=== PATIENT | female | born 1945 | race Caucasian/White ===

== ENCOUNTER 2021-09-27 06:21 | Day surgery (SDC) | payer MEDICARE, SELFPAY ==
[2021-09-20 15:51] VITALS: BMI 35.6
--- NOTE | 2021-09-26 13:37 | P.CONAN_ITS ---
Documented by User: Pippa Milligan NP 09/26/21 13:38 HPI - Anesthesia Eval Consult details Narrative: 76yo F for Upper Endoscopy with Balloon Dilitation and Colonoscopy [facility] Past Medical History Medical History Arthritis Edema of both lower extremities Hiatal hernia History of diverticulosis History of high cholesterol Internal hemorrhoids Surgical History Surgical History History of esophagogastroduodenoscopy (EGD) History of medial meniscus repair of left knee Hx of colonoscopy Hx of tubal ligation Hx of varicose vein ligation Social History Social History Are you a primary critical care nurse specialist to a significant other at home: No Do you presently have visiting nurse or other home services: No Patient Tobacco Use Status: Former Tobacco user Quit Date: 1999 Tobacco use type: Cigarette Use of substances other than those prescribed or required for medical reasons: No Are you DNR?: No Advance Directives: No Advance Directives Information Provided: Yes Meds Allergies Allergy/AdvReac Type Severity Reaction Status Date / Time No Known Allergies Allergy Verified 09/20/21 15:50 Home Medications Medication Instructions Recorded Confirmed Last Taken Type Calcium + Vitamin D 09/20/21 Unknown History aspirin 81 mg tablet,delayed 81 mg PO DAILY 09/20/21 09/27/21 09/20/21 History release furosemide 20 mg tablet 20 mg PO DAILY 09/20/21 09/20/21 Unknown History multivitamin tab 09/20/21 Unknown History omega-3 fatty acids PO 09/20/21 09/20/21 Unknown History rosuvastatin 40 mg tablet 40 mg PO DAILY 09/20/21 09/20/21 Unknown History Exam Exam Date and Time: September 26, 2021 1337 Height,Weight and Vital Signs: Height 5 ft 4 in Weight 94.347 kg Assessment and Plan Assessment Anesthesia Assessment: Chart Reviewed Documented by User: Edgar Morrow 09/27/21 09:42 [facility] Past Medical History Medical History Arthritis Edema of both lower extremities Hiatal hernia History of diverticulosis History of high cholesterol Internal hemorrhoids Functional capacity: wheelchair bound Family History Family history of problems with anesthesia: No Surgical History Surgical History History of esophagogastroduodenoscopy (EGD) History of medial meniscus repair of left knee Hx of colonoscopy Hx of tubal ligation Hx of varicose vein ligation History of Problems with Anesthesia: No Social History Social History Are you a primary critical care nurse specialist to a significant other at home: No Do you presently have visiting nurse or other home services: No Patient Tobacco Use Status: Former Tobacco user Quit Date: 1999 Tobacco use type: Cigarette Use of substances other than those prescribed or required for medical reasons: No Are you DNR?: No Advance Directives: No Advance Directives Information Provided: Yes Meds Allergies Allergy/AdvReac Type Severity Reaction Status Date / Time No Known Allergies Allergy Verified 09/20/21 15:50 Home Medications Medication Instructions Recorded Confirmed Last Taken Type Calcium + Vitamin D 09/20/21 Unknown History aspirin 81 mg tablet,delayed 81 mg PO DAILY 09/20/21 09/27/21 09/20/21 History release furosemide 20 mg tablet 20 mg PO DAILY 09/20/21 09/20/21 Unknown History multivitamin tab 09/20/21 Unknown History omega-3 fatty acids PO 09/20/21 09/20/21 Unknown History rosuvastatin 40 mg tablet 40 mg PO DAILY 09/20/21 09/20/21 Unknown History Exam Airway Mallampati Class: II Denture: Upper Loose/Missing/Broken Teeth: Yes Heart: rrr Lungs: bl breath sounds Assessment and Plan Assessment Anesthesia Assessment: Anesthesia Plan Discussed Final Anesthetic Review Family History of Problems with Anesthesia: No History of Problems with Anesthesia: No NPO: Yes ASA Class: II Final Preanesthetic Review: Consent Obtained/Reviewed and Anes Risks/Benef Reviewed Patient Risk: Intermediate Procedure Risk: Intermediate Anesthetic Plan Anesthetic Plan: MAC: Disposition: Standard PACU
[2021-09-27 06:47] VITALS: BP 146/82; PULSE 84; RESP 16; TEMP 36.5; O2SAT 97
[2021-09-27] MEDS: Lactated Ringers 1,000 ML 100 ML IVCONT (06:51)
[2021-09-27 08:58] VITALS: BP 128/68; PULSE 79; RESP 20; TEMP 36.3; O2SAT 100
--- NOTE | 2021-09-27 09:02 | PM.OP ---
Brief Operative Note Date of Service: 09/27/21 Pre-op diagnosis: Dysphagia, Screening Post-op diagnosis: other (Esophagitis, Diverticulosis) Procedure: EGD with biopsies and Balloon dilation, Colonoscopy to the cecum Surgeon: Obed Herrera Anesthesia: MAC Was an Interactive Account Manager used for this Procedure?: No Estimated blood loss (mL): 2.0 Pathology: other (A. Esophagus 30-35 cm) Condition: stable Disposition: PACU
[2021-09-27 09:13] VITALS: BP 139/66; PULSE 62; RESP 18; TEMP 36.3; O2SAT 98
--- NOTE | 2021-09-27 09:39 | OP_ITS ---
SURGEON: Obed Herrera MD INDICATIONS: The patient presents for evaluation of dysphagia, personal history of colon polyps, family history of colon cancer, and colorectal cancer screening. Full consent was obtained from her for both procedures, including risks of bleeding and perforation. PREOPERATIVE DIAGNOSIS: POSTOPERATIVE DIAGNOSIS: PROCEDURE PERFORMED: Esophagogastroduodenoscopy with balloon dilation and biopsies and colonoscopy to cecum. ESTIMATED BLOOD LOSS: COMPLICATIONS: ANESTHESIA: Medication used, monitored anesthesia care. ASSISTANTS: SPECIMENS: PREOPERATIVE DIAGNOSES: Dysphagia, personal history of colon polyps, family history of colon cancer, and colorectal cancer screening. POSTOPERATIVE DIAGNOSES: Dysphagia, personal history of colon polyps, family history of colon cancer, and colorectal cancer screening, reflux esophagitis, hiatal hernia, diverticulosis, internal hemorrhoids. DESCRIPTION OF PROCEDURE: The patient was placed in the left lateral decubitus position. The Olympus video gastroscope was passed in the posterior oropharynx and upper esophagus under direct vision. The scope was passed slowly into the distal esophagus. The gastroesophageal junction appeared at 35 cm. Extending from this to approximately 30 cm were some less than 5 mm erosions and some overlying exudates, which appeared to be whitish and somewhat yellowish in appearance consistent with either possible Samaria or reflux. There were no ulcerations nor masses. There was no definitive stricture nor ring. The scope easily entered the stomach. There was a small hiatal hernia. The scope was advanced to the pylorus, and the duodenum was cannulated to the descending portion. The duodenum including the bulb appeared normal without mass or ulceration. Scope was withdrawn back in the stomach. The gastric antrum and body appeared normal with good peristalsis. The scope was retroflexed visualizing the proximal stomach carefully, which appeared normal, without any sign of mass or ulceration. Scope was straightened. Scope was withdrawn back in the esophagus. Given her symptomatology, I did use a [employer] incremental balloon to dilate the gastroesophageal junction from 18 mm to 19 mm to 20 mm at the recommended pressure for between 30 and 60 seconds each. Post dilation, there was some minimal amount of heme but no appreciable change. I did obtain biopsies between 30 and 35 cm as well. Proximal to this, the esophageal mucosa appeared normal. The scope was withdrawn from the patient. She was turned around for the colonoscopy. The digital rectal exam revealed no abnormalities. The Olympus video pediatric colonoscope was entered into the rectum and advanced to the cecum. Advancement to the cecum was difficult and required abdominal wall pressure. Once in the cecum, I did identify a normal-appearing cecal pouch with appendiceal orifice and a normal-appearing ileocecal valve. There was transillumination of light deep in the right lower quadrant. The scope was then slowly withdrawn assessing all mucosal surfaces carefully. Preparation was excellent. I did not visualize any sign of polyps, colitis, or angiodysplasia. There was a mild amount of sigmoid diverticulosis. In the rectum, the scope was retroflexed visualizing internal hemorrhoids, but no other pathology. The rectal mucosa appeared normal. The scope was straightened and withdrawn from the patient. She tolerated both procedures well and was returned to the recovery area in stable condition. IMPRESSION: 1. Reflux esophagitis, rule out Samaria esophagitis. 2. Hiatal hernia. 3. Status post balloon dilation of gastroesophageal junction. 4. Diverticulosis. 5. Internal hemorrhoids. PLAN: The results of biopsies will be checked. Given today's findings, I shall start her on omeprazole 20 mg daily. She would theoretically be due for another colonoscopy in 5 years, although at that point she will be in her late 70s, and we would need to take her clinical condition into account. She was advised not to use any aspirin or NSAIDs for 1 week. She was advised to see me in several months for a followup and to call us sooner as needed. MD AUNDREA Lindquist/LINDEN / [id number] MTDD
== END 2021-09-27 09:38 | disposition home or self-care (01) ==
PROVIDERS: PCP Internal Medicine; Visit Provider Internal Medicine
PROC: (CPT 43249; principal; 2021-09-27 07:30)
PROC: 0DJD8ZZ Inspection of Lower Intestinal Tract, Via Natural or Artificial Opening Endoscopic (ICD-10-PCS; CPT 45378; 2021-09-27 07:30)
DX: Z12.11 Encounter for screening for malignant neoplasm of colon (principal); Z86.010 Personal history of colon polyps; Z80.0 Family history of malignant neoplasm of digestive organs; K57.30 Diverticulosis of large intestine without perforation or abscess without bleeding; K64.8 Other hemorrhoids; K59.00 Constipation, unspecified; R13.19 Other dysphagia; B37.81 Candidal esophagitis; K21.00 Gastro-esophageal reflux disease with esophagitis, without bleeding; K44.9 Diaphragmatic hernia without obstruction or gangrene; E78.5 Hyperlipidemia, unspecified; Z79.82 Long term (current) use of aspirin; Z79.899 Other long term (current) drug therapy
CPT/HCPCS: 43249; 43239; G0105; 88305; 88312; C1726